=== PATIENT | female | born 1975 ===

== ENCOUNTER → 2024-04-05 | Outpatient (CLI) | payer OTHER ==
[2024-04-05 18:04] LABS: BASOPHILS ABSOLUTE AUTO 0.03 K/mm3 (0.00-0.23); BASOPHILS PERCENT AUTO 0 % (0-2); EOSINOPHILS ABSOLUTE AUTO 0.12 K/mm3 (0.00-0.68); EOSINOPHILS PERCENT AUTO 2 % (0-6); Hematocrit 42.3 % (33.0-51.0); Hemoglobin 13.9 g/dL (11.5-16.0); IMMATURE GRAN ABSOLUTE AUTO 0.02 K/mm3 (0.00-0.10); IMMATURE GRAN PERCENT AUTO 0 % (0-1); LYMPHOCYTES ABSOLUTE AUTO 2.05 K/mm3 (0.84-5.20); LYMPHOCYTES PERCENT AUTO 26 % (21-46); MONOCYTES ABSOLUTE AUTO 0.87 K/mm3 (0.16-1.47); MONOCYTES PERCENT AUTO 11 % (4-13); Mean Corpuscular HGB 30.6 pg (26.0-34.0); Mean Corpuscular HGB Conc 32.9 g/dL (31.5-36.5); Mean Corpuscular Volume 93 fL (80-100); Mean Platelet Volume 9.8 fL (9.1-12.4); NEUTROPHILS ABSOLUTE AUTO 4.96 K/mm3 (1.96-9.15); NEUTROPHILS PERCENT AUTO 62 % (41-73); Platelet Count 241 K/mm3 (150-400); RDW Coefficient Variation 13.2 % (11.7-14.2); RDW Standard Deviation 45.5 fL (35.1-46.3); Red Blood Cell Count 4.54 M/mm3 (3.80-5.20); White Blood Cell Count 8.05 K/mm3 (4.00-11.30)
[2024-04-05 18:12] LABS: Albumin, Blood 3.5 g/dL (3.4-5.0); Albumin/Globulin Ratio 0.9 (0.8-1.8); Bilirubin, Total 0.4 mg/dL (0.1-1.0); Bun/Creatinine Ratio 6.1 (12.0-20.0); Calcium, Blood 8.5 mg/dL (8.5-10.1); Creatinine, Blood 0.82 mg/dL (0.40-1.00); Globulin, Blood 3.9 g/dL (2.2-4.0); Potassium, Blood 3.9 mmol/L (3.5-5.5); Total Protein, Blood 7.4 g/dL (6.4-8.2)
== END | disposition home or self-care (01) ==
LOC: LAB 17:59 → LAB SHORT 17:59
PROVIDERS: Family Medicine
DX: J18.9 Pneumonia, unspecified organism (principal)
CPT/HCPCS: 80053; 85025

== ENCOUNTER 2024-10-10 07:49 | Observation (INO) | payer OTHER ==
[2024-10-10] VITALS (14 sets, daily range): BP systolic 104–154; BP diastolic 46–82
[~2024-10-10] VITALS: Ht 172.7 cm; Wt 95.2 kg
[2024-10-10] MEDS ORDERED: FentaNYL Citrate 50 MCG/ML 2 ML Injection IV ONE (08:45)
[2024-10-10 08:46] LABS: BASOPHILS ABSOLUTE AUTO 0.06 K/mm3 (0.00-0.23); BASOPHILS PERCENT AUTO 0 % (0-2); EOSINOPHILS ABSOLUTE AUTO 0.24 K/mm3 (0.00-0.68); EOSINOPHILS PERCENT AUTO 2 % (0-6); Hematocrit 46.5 % (33.0-51.0); Hemoglobin 15.9 g/dL (11.5-16.0); IMMATURE GRAN ABSOLUTE AUTO 0.04 K/mm3 (0.00-0.10); IMMATURE GRAN PERCENT AUTO 0 % (0-1); LYMPHOCYTES ABSOLUTE AUTO 4.12 K/mm3 (0.84-5.20); LYMPHOCYTES PERCENT AUTO 31 % (21-46); MONOCYTES ABSOLUTE AUTO 0.90 K/mm3 (0.16-1.47); MONOCYTES PERCENT AUTO 7 % (4-13); Mean Corpuscular HGB Conc 34.2 g/dL (31.5-36.5); Mean Corpuscular Volume 88 fL (80-100); NEUTROPHILS ABSOLUTE AUTO 8.02 K/mm3 (1.96-9.15); NEUTROPHILS PERCENT AUTO 60 % (41-73); NRBC ABSOLUTE 0.00 K/mm3 (0.00-0.02); NRBC Auto 0.0 /100 WBC (0.0-0.2); Platelet Count 354 K/mm3 (150-400); RDW Coefficient Variation 12.6 % (11.7-14.2); RDW Standard Deviation 41.1 fL (35.1-46.3)
[2024-10-10 08:49] LABS: Source, Urine Clean Catch
[2024-10-10] MEDS ORDERED: NS 1,000 ML IV SCH (08:50)
[2024-10-10] MEDS ORDERED: Ondansetron HCl 2 MG / ML 2ML Vial IV ONE (08:50)
[2024-10-10 08:59] LABS: Alanine Aminotransfer (ALT/SGP 89.0 U/L (12-78); Albumin, Blood 3.8 g/dL (3.4-5.0); Albumin/Globulin Ratio 0.9 (0.8-1.8); Anion Gap 6.0 mmol/L (3-11); Aspartate Aminotrans (AST/SGOT 31.0 U/L (12-37); Bilirubin, Total 1.0 mg/dL (0.1-1.0); Blood Urea Nitrogen 8.0 mg/dL (8-24); CO2, Blood 29.0 mmol/L (21-32); Calcium, Blood 9.4 mg/dL (8.5-10.1); Chloride, Blood 108.0 mmol/L (98-108); Creatinine, Blood 0.68 mg/dL (0.40-1.00); Globulin, Blood 4.3 g/dL (2.2-4.0); Glucose, Blood 97.0 mg/dL (70-99); Potassium, Blood 3.8 mmol/L (3.5-5.5); Sodium, Blood 139.0 mmol/L (136-145); Total Protein, Blood 8.1 g/dL (6.4-8.2)
[2024-10-10 09:19] LABS: Bilirubin, Urine Neg (Neg); Color, Urine Yellow (P-Yellow); Glucose Qualitative, Urine Neg (Neg); Ketones, Urine Neg (Neg); Leukocyte Esterase, Urine Neg (Neg); Protein, Urine Neg (Neg); Specific Gravity, Urine 1.010 (1.003-1.022); Urobilinogen, Urine NORM (Normal)
[2024-10-10 09:27] LABS: Red Blood Cells, Urine Not Seen /hpf (0-2); White Blood Cells, Urine Not Seen /hpf (0-5)
[2024-10-10] MEDS ORDERED: HYDROmorphone HCl/Pf 1MG SYR IV ONE (10:10)
[2024-10-10] MEDS ORDERED: Ondansetron HCl 2 MG / ML 2ML Vial IV PRN (11:40)
[2024-10-10] MEDS ORDERED: HYDROmorphone HCl/Pf 1MG SYR IV PRN ×3 (11:40→21:30)
[2024-10-10] MEDS ORDERED: Ketorolac Tromethamine 15mg Vial IV PRN (11:50)
[2024-10-10] MEDS ORDERED: CeFAZolin Sodium 2,000 MG in NS 100 ML IV SCH (11:50)
--- NOTE | 2024-10-10 13:39 | NUR ---
pt to room 209. npo for cholecystectomy. iv r ac flushed and sl. onset of symptoms ten days ago. denies need for pain medication now. pt npo. localizes area of discomfort to r uq radiating to back.
--- NOTE | 2024-10-10 17:40 | NUR ---
END OF SHIFT PT RESTING. RECENTLY MEDICATED FOR PAIN. DENIES COMPLAINTS. IV INFUSING R ARM. AWAITING OR FOR ROBOTIC CHOLECYSTECTOMY.
[2024-10-10] MEDS ORDERED: Bupivacaine 0.5% HCl 5 MG/ML 30MLVIAL ONE (17:41)
[2024-10-10] MEDS ORDERED: Sugammadex Sodium 200 MG/2ML SDV (100 MG/ML) ONE (18:17)
[2024-10-10] MEDS ORDERED: FentaNYL Citrate 50 MCG/ML 2 ML Injection ONE (18:17)
[2024-10-10] MEDS ORDERED: Midazolam HCl 1MG / ML 2ML Vial ONE (18:17)
[2024-10-10] MEDS ORDERED: Dexamethasone Sod Phos 10 MG/ML 1ML VIAL ONE (18:18)
[2024-10-10] MEDS ORDERED: Ondansetron HCl 2 MG / ML 2ML Vial ONE (18:18)
[2024-10-10] MEDS ORDERED: CeFAZolin Sodium 2,000 MG VIAL ONE (19:00)
[2024-10-10] MEDS ORDERED: HYDROmorphone HCl/Pf 1MG SYR ONE (19:43)
[2024-10-10] MEDS ORDERED: HYDROmorphone HCl/Pf 1MG SYR IV SCH (21:20)
[2024-10-10] MEDS ORDERED: FentaNYL Citrate 50 MCG/ML 2 ML Injection IV SCH (21:20)
[2024-10-10] MEDS ORDERED: ePHEDrine Sulfate 50 MG/ML 1ML Injection IV PRN (21:30)
[2024-10-10] MEDS ORDERED: FentaNYL Citrate 50 MCG/ML 2 ML Injection IV PRN ×2 (21:30→21:35)
[2024-10-10] MEDS ORDERED: Metoclopramide HCl 5MG / ML 2ML Vial IV PRN (21:30)
[2024-10-10] MEDS ORDERED: HydrALAZINE HCl 20 MG / ML 1ML Vial IV PRN (21:30)
--- NOTE | 2024-10-10 23:02 | NUR ---
UPDATE PT ARRIVED TO UNIT FROM PACU AT APPROX 2230 TODAY. PT DROWSY, BUT A/OX4. SPO2 AT 100% ON 3L, REDUCED TO 2L NC. IV PATENT AND SL. DENIES SOB, CP, N/T OR N/V. LAP SITE X 4 CDI, NO DRAINAGE OR DRESSING NOTED. ICE CHIPS PROVIDED. HAS CALL LIGHT IN REACH. SPOUSE ATTENTIVE AT BEDSIDE. DENIES NEEDS.
[2024-10-11 03:43] VITALS: BP 139/71
--- NOTE | 2024-10-11 04:49 | NUR ---
SHIFT SUMMARY POD 1 S/P LAP JEFF. ABD INCISIONS X 4 CDI. IS VOIDING AND AMB IN ROOM WITH SBA. ABD INCISIONS X4 CDI, NO DRAINAGE NOTED. SUDHIR SMALL AMOUNT OF PO, DENIES N/V. PAIN MANAGED PER EMAR, MEDICATED X 1. IV PATENT AND SL. PT CURRENTLY RESTING IN BED WITH EYES CLOSED, RESP EVEN/UNLABORED. HAS CALL LIGHT IN REACH AND ABLE TO MAKE NEEDS KNOWN. PT IS A/OX4. SPOUSE ATTENTIVE AT BEDSIDE, WILL GIVE REPORT TO ONCOMING RN
[2024-10-11 07:12] VITALS: BP 133/70
[2024-10-11] MEDS ORDERED: Enoxaparin 40 MG/0.4 ML SYR SC SCH (09:00)
[2024-10-11] MEDS ORDERED: OXYC5 PO (09:37)
--- NOTE | 2024-10-11 09:54 | NUR ---
DISCHARGE EATING, DRINKING, VOIDING. PAIN WELL CONTROLLED. HAS ALREADY PICKED UP Rx. EXCITED FOR DC. DECLINES WC OUT. AMBULATES OUT EASILY w/ .
== END 2024-10-11 09:55 | disposition home or self-care (01) ==
LOC: ER 07:49 → SURS 07:50
PROVIDERS: Physician Assistant; ADMIT Surgery
PROC: BF53200 Other Imaging of Gallbladder and Bile Ducts using Fluorescing Agent, Indocyanine Green Dye, Intraoperative (ICD-10-PCS; principal; 2024-10-10 17:00)
PROC: 0FT44ZZ Resection of Gallbladder, Percutaneous Endoscopic Approach (ICD-10-PCS; principal; 2024-10-10 17:00)
DX: K80.12 Calculus of gallbladder with acute and chronic cholecystitis without obstruction (principal); F17.210 Nicotine dependence, cigarettes, uncomplicated; Z88.0 Allergy status to penicillin
CPT/HCPCS: 76705; 80053; 81001; 81025; 83690; 85025; 88304; 93005; 93010; 94762; 96374; 96375; 96376; 99285-25; A9270; G0378; J0690; J1100; J1171; J1650; J1885; J2250; J2405; J2704; J2765; J3010; J7030; J7120